=== PATIENT | female | born 1955 | race Caucasian/White ===

== ENCOUNTER 2018-07-06 10:23 | Emergency (ER) | payer OTHER ==
[2018-07-06 10:32] VITALS: RESP 18; TEMP 98.2
[2018-07-06] MEDS ORDERED: FAMOTIDINE 20 MG/2 ML VIAL IV STA (10:54)
[2018-07-06] MEDS ORDERED: diphenhydrAMINE 50 MG/ML 1 ML VIAL IVP STA (10:54)
--- NOTE | 2018-07-06 12:07 | ED ---
General Adult HPI - General Chief complaint: Allergic Reaction Stated complaint: tounge swelling Time Seen by Provider: 07/06/18 10:46 Source: patient, RN notes reviewed Mode of arrival: ambulatory Limitations: no limitations - History of Present Illness Initial comments: 63-year-old female sent emergency Department chief complaint of mouth and tongue swelling. Patient states it started last night after eating a brownie that had marijuana in it. She states that she was given this by somebody for her chronic pain. Patient states that she did take some Benadryl last night did not seem to help much went to urgent care today was given a shot of steroids and states he sees improved some with states that still hurts to swallow, difficult and noticed swelling underneath the left side of her tongue. She's never had any like this in the past. 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 Patient denies taking any Benadryl or any other medications morning. Patient reports no fevers no chills. - Related Data Home Medications Medication Instructions Recorded Confirmed DULoxetine HCL [Cymbalta] 20 mg PO BID 07/06/18 07/06/18 Lisinopril [Prinivil] 10 mg PO DAILY 07/06/18 07/06/18 Rosuvastatin Calcium [Crestor] 5 mg PO HS 07/06/18 07/06/18 Previous Rx's Medication Instructions Recorded EPINEPHrine [Epipen 2-Danial] 0.3 mg IM ONCE PRN #1 pack 07/06/18 predniSONE 50 mg PO DAILY #5 tab 07/06/18 Allergies Allergy/AdvReac Type Severity Reaction Status Date / Time codeine AdvReac Nausea & Verified 07/06/18 11:15 Vomiting Review of Systems ROS Statement: Those systems with pertinent positive or pertinent negative responses have been documented in the HPI. ROS Other: All systems not noted in ROS Statement are negative. Past Medical History Past Medical History: Hypertension Additional Past Medical History / Comment(s): depression chronic neck pain History of Any Multi-Drug Resistant Organisms: None Reported Past Surgical History: Uterine Ablation Additional Past Surgical History / Comment(s): neck surg Past Psychological History: Depression Smoking Status: Current every day smoker Past Alcohol Use History: Rare Past Drug Use History: None Reported, Marijuana General Exam Limitations: no limitations General appearance: alert, in no apparent distress Head exam: Present: atraumatic, normocephalic, normal inspection Eye exam: Present: normal appearance, PERRL, EOMI. Absent: scleral icterus, conjunctival injection, periorbital swelling ENT exam: Present: mucous membranes moist, TM's normal bilaterally, normal external ear exam. Absent: normal oropharynx (Noted swelling underneath the tongue primarily on the left, mild tongue swelling, swallowing secretions well) Neck exam: Present: normal inspection, full ROM. Absent: tenderness, meningismus, lymphadenopathy Respiratory exam: Present: normal lung sounds bilaterally. Absent: respiratory distress, wheezes, rales, rhonchi, stridor Cardiovascular Exam: Present: regular rate, normal rhythm, normal heart sounds. Absent: systolic murmur, diastolic murmur, rubs, gallop, clicks Neurological exam: Present: alert Skin exam: Present: warm, dry, intact, normal color. Absent: rash Course Vital Signs 07/06/18 10:27 Temperature 98.2 F Pulse Rate 94 Respiratory 18 Rate Blood Pressure 150/85 O2 Sat by Pulse 100 Oximetry - Reevaluation(s) Reevaluation #1: 07/06/18 15:04 Patient was reevaluated states that symptoms are improving. 07/06/18 15:04 Medical Decision Making - Medical Decision Making 63-year-old female presented emergency department for throat swelling, mild swelling. CT showed left-sided tonsillar swelling though no signs of infection. Patient is improved after steroids Benadryl and appendectomy. Patient was offered observation states that she feels fine to go home. Symptoms did start approximately 18 hours ago. Patient we discharged with EpiPen, prednisone. - Lab Data Result diagrams: 07/06/18 11:25 07/06/18 11:25 Lab Results 07/06/18 07/06/18 Range/Units 11:25 11:25 WBC 8.3 (3.8-10.6) k/uL RBC 4.78 (3.80-5.40) m/uL Hgb 14.7 (11.4-16.0) gm/dL Hct 44.0 (34.0-46.0) % MCV 92.0 (80.0-100.0) fL MCH 30.8 (25.0-35.0) pg MCHC 33.5 (31.0-37.0) g/dL RDW 12.6 (11.5-15.5) % Plt Count 466 H (150-450) k/uL Neutrophils % 76 % Lymphocytes % 17 % Monocytes % 4 % Eosinophils % 3 % Basophils % 1 % Neutrophils # 6.3 (1.3-7.7) k/uL Lymphocytes # 1.4 (1.0-4.8) k/uL Monocytes # 0.3 (0-1.0) k/uL Eosinophils # 0.2 (0-0.7) k/uL Basophils # 0.1 (0-0.2) k/uL Sodium 140 (137-145) mmol/L Potassium 4.6 (3.5-5.1) mmol/L Chloride 102 (98-107) mmol/L Carbon Dioxide 25 (22-30) mmol/L Anion Gap 13 mmol/L BUN 18 H (7-17) mg/dL Creatinine 0.85 (0.52-1.04) mg/dL Est GFR (CKD-EPI)AfAm 86 (>60 ml/min/1.73 sqM) Est GFR (CKD-EPI)NonAf 75 (>60 ml/min/1.73 sqM) Glucose 102 H (74-99) mg/dL Calcium 10.1 (8.4-10.2) mg/dL Total Bilirubin 0.5 (0.2-1.3) mg/dL AST 24 (14-36) U/L ALT 17 (9-52) U/L Alkaline Phosphatase 77 (38-126) U/L Total Protein 8.3 H (6.3-8.2) g/dL Albumin 4.7 (3.5-5.0) g/dL Disposition Clinical Impression: Allergic reaction, Tonsillar enlargement Disposition: HOME SELF-CARE Condition: Stable Instructions: Anaphylaxis (ED) Additional Instructions: Please return to the Emergency Department if symptoms worsen or any other concerns. Prescriptions: EPINEPHrine [Epipen 2-Danial] 0.3 mg IM ONCE PRN #1 pack PRN Reason: Anaphylaxis predniSONE 50 mg PO DAILY #5 tab Is patient prescribed a controlled substance at d/c from ED?: No Referrals: Khari Canchola MD [Primary Care Provider] - 1-2 days Abdullahi Benentt MD [STAFF PHYSICIAN] - 1-2 days Time of Disposition: 15:13
[2018-07-06 12:08] LABS: Basophils # (A) 0.1 k/uL (0-0.2); Basophils % (A) 1 %; Eosinophils # (A) 0.2 k/uL (0-0.7); Eosinophils % (A) 3 %; HGB 14.7 gm/dL (11.4-16.0); Lymphocytes # (A) 1.4 k/uL (1.0-4.8); Lymphocytes % (A) 17 %; MCH 30.8 pg (25.0-35.0); MCHC 33.5 g/dL (31.0-37.0); Mean Platelet Volume 6.9; Monocytes # (A) 0.3 k/uL (0-1.0); Monocytes % (A) 4 %; Neutrophils # (A) 6.3 k/uL (1.3-7.7); Neutrophils % (A) 76 %; Platelet Count 466 k/uL (150-450); RBC 4.78 m/uL (3.80-5.40); RDW 12.6 % (11.5-15.5); WBC 8.3 k/uL (3.8-10.6)
[2018-07-06 12:16] LABS: Albumin 4.7 g/dL (3.5-5.0); Calcium 10.1 mg/dL (8.4-10.2); Potassium 4.6 mmol/L (3.5-5.1); Total Bilirubin 0.5 mg/dL (0.2-1.3); Total Protein 8.3 g/dL (6.3-8.2)
--- NOTE | 2018-07-06 12:29 | CT ---
EXAMINATION TYPE: CT soft tissue neck w con DATE OF EXAM: 07/06/2018 COMPARISON: None HISTORY: Tongue Swelling CT DLP: 172.4 mGycm CONTRAST: Patient injected with 83 mL of Isovue 300. TECHNIQUE: Axial images at 3 mm thick sections. Reconstructed images in the coronal plane and sagitt al plane are reviewed. FINDINGS: Limited CT sections are obtained the lung apices. The lung apices appear clear. CT neck: The torus tubarius and fossa of Rosenmuller are normal. Livestock Trucker spaces are normal. Para nasal sinuses and mastoid air cells are clear. Parotid glands appear normal and symmetrical. Submandibular glands, are normal. Parapharyngeal spac es are normal. No suspicious adenopathy is evident. There is mild prominence of the left tonsillar pillar compared to the right. No underlying mass is id entified. Consider direct visualization. Tongue appears normal. Hypoglossal region appears unremarkable. The hypopharynx appears within normal limits. Left piriform sinus may be somewhat small. Vocal cord level appear symmetrical. Thyroid as visualized is normal. Osseous structures are normal. Anterior cervical fusion is been performed C4-C7. There is an air-fluid level within the right maxillary sinus. Mucosal thickening is through the visua lized right maxillary sinus. Correlate for acute right maxillary sinusitis. IMPRESSIONS: 1. Prominence of the left tonsillar pillar without evidence of an obvious underlying mass or abscess. Direct visualization is recommended. 2. Visualized portions of the tongue appear unremarkable.
[2018-07-06] MEDS ORDERED: EPINEPHrine 1 MG/ML 1 ML AMP IM STA (13:44)
[2018-07-06 15:17] VITALS: BP 150/90; PULSE 104
== END 2018-07-06 15:30 | disposition home or self-care (01) ==
LOC: EC 10:23
DX: J35.1 Hypertrophy of tonsils (principal); T78.40XA Allergy, unspecified, initial encounter; I10 Essential (primary) hypertension; F32.9 Major depressive disorder, single episode, unspecified; F17.200 Nicotine dependence, unspecified, uncomplicated; Z79.899 Other long term (current) drug therapy; Z88.5 Allergy status to narcotic agent
CPT/HCPCS: 36415; 80053; 85025; 70491; 99284; 96374; 96375; 96372; J0171; J1200; Q9967

== ENCOUNTER → 2022-01-28 | Outpatient (CLI) | payer MEDICARE ==
--- NOTE | 2022-01-29 18:18 | MM ---
Reason for Exam: Screening (asymptomatic). Last mammogram was performed 10 year(s) and 1 month(s) ago. Patient History: Menarche at age 15. First Full-Term at age 36. Late child-bearing (after 32). Postmenopausal. Other cancer, age 56. Maternal cousin had breast cancer, age 40. Risk Values: Karen 5 year model risk: 2.2%. NCI Lifetime model risk: 8.9%. Prior Study Comparison: No prior studies available for comparison. Tissue Density: There are scattered fibroglandular densities. Findings: Analyzed By CAD. No significant mass, suspicious microcalcification, or other discrete abnormality is seen. Benign oil cyst calcification on the left. Overall Assessment: Benign, BI-RAD 2 Management: Screening Mammogram of both breasts in 1 year. 1. Patient should continue monthly self breast exams. 2. A clinical breast exam by your physician is recommended on an annual basis. 3. This exam should not preclude additional follow-up of suspicious palpable abnormalities. Electronically signed and approved by: Crystal Doran M.D. Radiologist
== END | disposition home or self-care (01) ==
LOC: RADMAMWWP 15:54
PROVIDERS: ATTEND Family Medicine
DX: Z12.31 Encounter for screening mammogram for malignant neoplasm of breast (principal); Z78.0 Asymptomatic menopausal state; Z80.3 Family history of malignant neoplasm of breast
CPT/HCPCS: 77063; 77067

== ENCOUNTER → 2023-07-15 | Outpatient (CLI) | payer MEDICARE ==
--- NOTE | 2023-07-15 11:15 | CT ---
EXAMINATION TYPE: CT brain wo con DATE OF EXAM: 07/15/2023 COMPARISON: None available. HISTORY: Syncopal episodes. CT DLP: 1207 mGycm Automated exposure control for dose reduction was used. FINDINGS: There is no acute intracranial hemorrhage, mass, mass effect, midline shift, extra-axial fluid collec tion or hydrocephalus. The sal-white distinction is intact without evidence of an acute major vessel infarct. There is mild soft tissue swelling overlying the left supraorbital region. Mild leftward nasal septal deviation is seen. Question prior sinus surgery within the medial aspect o f the maxillary sinuses. There is significant mucosal thickening within the right maxillary sinus. Th e visualized paranasal sinuses and mastoid air cells are otherwise clear. The orbits and globes appear unremarkable. IMPRESSION: 1. NO ACUTE INTRACRANIAL PROCESS. 2. MILD LEFT SUPRAORBITAL SOFT TISSUE SWELLING.
== END | disposition home or self-care (01) ==
LOC: RADCTMAIN 08:09
PROVIDERS: ATTEND Family Medicine
DX: R55 Syncope and collapse (principal); R22.0 Localized swelling, mass and lump, head
CPT/HCPCS: 70450